=== PATIENT | female | born 1955 | race Asian ===

== ENCOUNTER 2018-08-02 10:09 | Inpatient (IN) | payer OTHER ==
[~2018-08-02] VITALS: Ht 170.2 cm; Wt 67.1 kg
[2018-08-02 11:38] LABS: BASOPHILS % 1.2 % (0.0-2.0); EOSINOPHILS % 0.8 % (0.0-5.0); HEMATOCRIT. 37.6 % (36.0-48.0); HEMOGLOBIN. 12.9 g/dL (12.0-16.0); LYMPHOCYTES % 19.3 % (20.0-50.0); MEAN CORPUSCULAR HEMOGLOBIN 31.6 pg (28.0-32.0); MEAN CORPUSCULAR VOLUME 91.8 fL (81.0-99.0); MONOCYTES % 4.4 % (2.0-8.0); NEUTROPHILS % 74.3 % (40.0-76.0); PLATELET 351 x1000/uL (130-400); RED BLOOD CELL COUNT 4.09 mill/uL (4.2-5.4); RED CELL DISTRIBUTION WIDTH 14.1 % (11.6-14.6)
[2018-08-02 11:45] LABS: CHLORIDE 97 mEq/L (98-107)
[2018-08-02 11:46] LABS: PROTHROMBIN TIME 10.1 sec (9.6-11.0)
[2018-08-02 11:49] LABS: ETHANOL BLOOD < 10 mg/dL
[2018-08-02 11:52] LABS: LDL CHOLESTEROL 183 mg/dL (5-100)
[2018-08-02] MEDS ORDERED: DIPHENHYDRAMINE 50MG/ML VIAL IV PRN (13:00)
[2018-08-02] MEDS ORDERED: GUAIFENESIN 200MG/10ML SUGAR FREE UDC PO PRN (13:00)
[2018-08-02] MEDS ORDERED: CLONIDINE 0.1MG TABLET PO PRN (13:00)
[2018-08-02] MEDS ORDERED: ONDANSETRON HCL 4MG/2ML INJ IV PRN (13:00)
[2018-08-02] MEDS ORDERED: DOCUSATE SODIUM 100MG CAPSULE PO PRN (13:00)
[2018-08-02] MEDS ORDERED: IPRATROPIUM/ALBUTEROL 0.5-3(2.5)MG/3ML NEB INH PRN (13:00)
[2018-08-02] MEDS ORDERED: HYDROCODONE/ACETAMINOPHEN 5/325MG TABLET PO PRN (13:00)
[2018-08-02] MEDS ORDERED: MAGNESIUM/ALUMINUM HYDROXIDE/SIMETHICONE 30ML UDC PO PRN (13:00)
[2018-08-02] MEDS ORDERED: ACETAMINOPHEN 325MG TABLET PO PRN (13:00)
[2018-08-02 13:31] LABS: PHOSPHORUS 2.8 mg/dL (2.5-4.9)
[2018-08-02] MEDS ORDERED: IOHEXOL-350 100 ML BOTTLE ONE (14:23)
[2018-08-02 15:11] LABS: CREATINE KINASE MB FRACTION 1.2 ng/mL (0.5-3.6)
[2018-08-02] MEDS: SODIUM CHLORIDE 0.9% 1,000 ML IV SCH (15:15)
[2018-08-02 15:40] LABS: CLARITY URINE CLEAR (CLEAR); COLOR URINE YELLOW (YELLOW); KETONES URINE 1+ (NEGATIVE); LEUKOCYTE ESTERASE URINE NEGATIVE (NEGATIVE); NITRITE URINE NEGATIVE (NEGATIVE); OCCULT BLOOD URINE NEGATIVE (NEGATIVE); PH URINE 6.5 (4.5-8.0); PROTEIN URINE 1+ (NEGATIVE); SPECIFIC GRAVITY URINE 1.079 (1.005-1.030); UROBILINOGEN URINE 0.2 E.U./dL (0.2-1.0)
[2018-08-02 15:53] LABS: *AMPHETAMINES SCREEN URINE NEGATIVE (NEGATIVE); *BARBITURATES SCREEN URINE NEGATIVE (NEGATIVE); *BENZODIAZEPINES SCREEN URINE NEGATIVE (NEGATIVE)
[2018-08-02 15:54] LABS: *COCAINE SCREEN URINE NEGATIVE (NEGATIVE); CANNABINOID URINE SCREEN NEGATIVE (NEGATIVE); METHADONE URINE SCREEN NEGATIVE (NEGATIVE); OPIATES URINE SCREEN NEGATIVE (NEGATIVE); PHENCYCLIDINE URINE SCREEN NEGATIVE (NEGATIVE)
[2018-08-02] MEDS: ENOXAPARIN 40MG/0.4ML SYR SUBCUT SCH (20:06)
[2018-08-03 00:09] VITALS: BP 130/72
[2018-08-03] MEDS ORDERED: LACT100C2 PO (00:28)
[2018-08-03] MEDS ORDERED: OMEP20CA10 PO (00:28)
[2018-08-03] MEDS ORDERED: CHOL400C8 PO (00:28)
[2018-08-03 00:42] LABS: CREATINE KINASE MB FRACTION 1.3 ng/mL (0.5-3.6)
[2018-08-03] MEDS ORDERED: DEXTROSE 50% WATER 50ML SYRINGE IV PRN (01:30)
[2018-08-03 04:00] VITALS: BP 165/75
[2018-08-03] MEDS: BLOOD SUGAR DIAGNOSTIC STRIP TEST SCH ×4 (06:42→21:02)
[2018-08-03 07:05] LABS: BASOPHILS % 0.9 % (0.0-2.0); CHLORIDE 101 mEq/L (98-107); EOSINOPHILS % 2.6 % (0.0-5.0); HEMATOCRIT. 32.6 % (36.0-48.0); HEMOGLOBIN. 11.3 g/dL (12.0-16.0); LYMPHOCYTES % 34.4 % (20.0-50.0); MEAN CORPUSCULAR HEMOGLOBIN 31.4 pg (28.0-32.0); MEAN CORPUSCULAR VOLUME 90.9 fL (81.0-99.0); MEAN PLATELET VOLUME 8.1 fl (7.4-10.4); MONOCYTES % 8.2 % (2.0-8.0); NEUTROPHILS % 53.9 % (40.0-76.0); PLATELET 326 x1000/uL (130-400); RED BLOOD CELL COUNT 3.59 mill/uL (4.2-5.4); RED CELL DISTRIBUTION WIDTH 14.2 % (11.6-14.6)
[2018-08-03 07:15] LABS: LDL CHOLESTEROL 171 mg/dL (5-100)
[2018-08-03 07:16] LABS: HDL CHOLESTEROL 48 mg/dL (40-59)
[2018-08-03] MEDS: INSULIN LISPRO 100 UNITS/ML SUBCUT SCH ×4 (07:50→21:47)
[2018-08-03 08:00] VITALS: BP 144/82
[2018-08-03 12:00] VITALS: BP 140/59
[2018-08-03] MEDS: ENOXAPARIN 40MG/0.4ML SYR SUBCUT SCH (14:12)
[2018-08-03] MEDS: CLOPIDOGREL 75MG TABLET PO SCH (14:12)
[2018-08-03] MEDS: SODIUM CHLORIDE 0.9% 1,000 ML IV SCH ×2 (14:18→21:47)
[2018-08-03 14:56] LABS: T4 FREE 0.52 ng/dL (0.76-1.46)
[2018-08-03 15:11] LABS: FOLIC ACID (FOLATE) SERUM 15.3 ng/mL (>5.38)
[2018-08-03 16:00] VITALS: BP 115/63
[2018-08-03 20:25] VITALS: BP 109/61
[2018-08-03] MEDS: INSULIN GLARGINE UD 100 UNITS/ML SYR SUBCUT SCH (22:20)
[2018-08-04] VITALS (7 sets, daily range): BP systolic 119–154; BP diastolic 54–100
[2018-08-04] MEDS: BLOOD SUGAR DIAGNOSTIC STRIP TEST SCH ×4 (06:08→20:35)
[2018-08-04 06:32] LABS: BASOPHILS % 0.9 % (0.0-2.0); EOSINOPHILS % 2.9 % (0.0-5.0); HEMOGLOBIN. 11.5 g/dL (12.0-16.0); LYMPHOCYTES % 37.8 % (20.0-50.0); MEAN CORPUSCULAR HEMOGLOBIN 31.3 pg (28.0-32.0); MEAN CORPUSCULAR VOLUME 92.1 fL (81.0-99.0); MEAN PLATELET VOLUME 7.9 fl (7.4-10.4); MONOCYTES % 7.9 % (2.0-8.0); NEUTROPHILS % 50.5 % (40.0-76.0); PLATELET 315 x1000/uL (130-400); RED BLOOD CELL COUNT 3.69 mill/uL (4.2-5.4); RED CELL DISTRIBUTION WIDTH 14.2 % (11.6-14.6)
[2018-08-04 07:13] LABS: CHLORIDE 104 mEq/L (98-107)
[2018-08-04] MEDS ORDERED: LEVOTHYROXINE SODIUM 100MCG TABLET PO SCH (07:20)
[2018-08-04] MEDS: INSULIN LISPRO 100 UNITS/ML SUBCUT SCH ×4 (08:00→20:36)
[2018-08-04] MEDS: METFORMIN HCL 500MG TABLET PO SCH ×2 (08:01→16:50)
[2018-08-04] MEDS: CLOPIDOGREL 75MG TABLET PO SCH (08:01)
[2018-08-04] MEDS ORDERED: LINAGLIPTIN 5MG TABLET PO SCH (09:00)
[2018-08-04] MEDS: ENOXAPARIN 40MG/0.4ML SYR SUBCUT SCH (15:00)
[2018-08-04] MEDS: INSULIN GLARGINE UD 100 UNITS/ML SYR SUBCUT SCH (22:00)
== END 2018-08-05 00:20 | disposition home or self-care (01) | DRG 45 ==
LOC: ER 10:09 → EDBEDREQ 12:34 → 6WST 15:55 → EDBEDREQSVC 16:03 → ENRESERV 22:34
PROVIDERS: ADMIT Internal Medicine; ATTEND Internal Medicine
DX: I63.9 Cerebral infarction, unspecified (principal); E11.65 Type 2 diabetes mellitus with hyperglycemia; E87.1 Hypo-osmolality and hyponatremia; G81.91 Hemiplegia, unspecified affecting right dominant side; I10 Essential (primary) hypertension; E78.5 Hyperlipidemia, unspecified; E03.9 Hypothyroidism, unspecified; F17.210 Nicotine dependence, cigarettes, uncomplicated; Z71.6 Tobacco abuse counseling
CPT/HCPCS: 36415; 70496; 70551; 71045; 80048; 80061; 80305; 80320; 82533; 82550; 82553; 82607; 82746; 82962; 83036; 83721; 83735; 84100; 84439; 84443; 84481; 84484; 92610; 93005; 93880; 93970; 96372; 97116; 97162; 97166; 97530; 99285; J1650; J1815; Q9967; G0480